=== PATIENT | male | born 1950 | race Caucasian/White ===

== ENCOUNTER 2017-03-14 16:08 | Emergency (ER) | payer MEDICARE, BC ==
--- NOTE | 2017-03-14 16:15 | EDM.PDOC ---
ED HPI GENERAL MEDICAL PROBLEM - General Chief Complaint: Cardiovascular Problem Stated Complaint: IN BY AMBULANCE Time Seen by Provider: 03/14/17 16:08 Source of Information: Reports: Patient, EMS, RN, RN notes reviewed History Limitations: Reports: No Limitations - History of Present Illness INITIAL COMMENTS - FREE TEXT/NARRATIVE: Patient arrives from home by ambulance with report patient was mowing and raking in yard on a riding mower when felt his heart "jump around" then his ICD went off three different times. Patient admits to feeling lightheaded when his heart jumped and also anxious and short of breath. Denies nausea or chest pain. Patient called 911 and states the ICD went off 2 more times, [employer]. Currently patient denies chest pain, nausea, or irregular fast heart rate. He admits to feeling anxious and slightly short of breath. Patient states this was the first time his ICD has ever went off. Onset: today Location: Reports: chest Severity: severe Improves with: Reports: None Worsens with: Reports: None Associated Symptoms: Reports: no other symptoms Chest Pain Score (Numeric/FACES): 3 - Related Data Allergies Allergy/AdvReac Type Severity Reaction Status Date / Time No Known Allergies Allergy Verified 03/14/17 16:12 Home Meds: Home Meds Aspirin [Carrie Chewable] 81 mg PO BID 07/18/16 [History] Clopidogrel [Plavix] 75 mg PO DAILY 07/18/16 [History] Fenofibrate Nanocrystallized [Tricor] 145 mg PO DAILY 07/18/16 [History] Latanoprost [Xalatan 0.005% Ophth Soln] 1 drop EYEBOTH BEDTIME 07/18/16 [History ] Mirtazapine 30 mg PO BEDTIME 07/18/16 [History] Multivit&Min/Iron Fum/Folic Ac [Monocaps Tablet] 1 tab PO DAILY 07/18/16 [ History] Niacin 500 mg PO BID 07/18/16 [History] Sertraline [Zoloft] 100 mg PO BEDTIME 07/18/16 [History] Spironolactone [Aldactone] 25 mg PO DAILY 07/18/16 [History] Zolpidem Tartrate [Ambien] 5 mg PO BEDTIME 07/18/16 [History] Acetaminophen with Codeine [Tylenol with Codeine #3 Tablet] 1 tab PO Q6H PRN 09/20 [History] Amiodarone [Cordarone] 200 mg PO DAILY 03/14/17 [History] Carvedilol 25 mg PO BID 03/14/17 [History] Ezetimibe [Zetia] 10 mg PO DAILY 03/14/17 [History] Gluc HCl/Csa/Cali Hy/Hyalur Ac [Glucosamine Chondroitin] 03/14/17 [History] Magnesium Oxide 400 mg PO DAILY 03/14/17 [History] Nitroglycerin [Nitrostat] 0.4 mg PO ASDIRECTED PRN 03/14/17 [History] [place]-3/DHA/Epa/Fish Oil [[place] 3 500 Softgel] 1 each PO DAILY 03/14/17 [History ] Pravastatin [Pravachol] 80 mg PO BEDTIME 03/14/17 [History] Psyllium Husk [Metamucil] 1 each PO DAILY 03/14/17 [History] Past Medical History HEENT History: Reports: Impaired vision Cardiovascular History: Reports: CAD, High cholesterol, Hypertension, Pacemaker , PTCA - Past Surgical History HEENT Surgical History: Reports: Cataract surgery, Tonsillectomy Cardiovascular Surgical History: Reports: Coronary artery bypass (x2,), Coronary artery stent (multiple.), Pacer ( in 2016.) GI Surgical History: Reports: Cholecystectomy Musculoskeletal Surgical History: Reports: Knee replacement, Other (see below) Other Musculoskeletal Surgeries/Procedures:: back surgery Social & Family History - Family History Family Medical History: Noncontributory - Tobacco Use Smoking Status *Q: Never Smoker Second Hand Smoke Exposure: No - Caffeine Use Caffeine Use: Reports: None - Recreational Drug Use Recreational Drug Use: No ED ROS GENERAL - Review of Systems Review Of Systems: ROS reveals no pertinent complaints other than HPI. ED EXAM, GENERAL - Physical Exam Exam: See Below Exam Limited By: No Limitations General Appearance: Anxious, Obese Eye Exam: Bilateral Eye: Normal Inspection Ears: Normal External Exam, Normal Canal, Hearing Grossly Normal, Normal TMs Nose: Normal Inspection, Normal Mucosa, No Blood Throat/Mouth: Normal Inspection, Normal Lips, Normal Teeth, Normal Gums, Normal Oropharynx, Normal Voice, No Airway Compromise Head: Atraumatic, Normocephalic Neck: Normal Inspection, Supple, Non-Tender, Full Range of Motion Respiratory/Chest: No Respiratory Distress Cardiovascular: Regular Rate, Rhythm, Other (extra beat with PVC on tele monitor. ) GI/Abdominal: Other (obesem benign abdomen.) Back Exam: Normal Inspection, Full Range of Motion, NT Extremities: Normal Inspection, Normal Range of Motion, Non-Tender, Normal Capillary Refill, No Pedal Edema Neurological: Alert, Oriented, CN II-XII Intact, Normal Cognition, Normal Gait, Normal Reflexes, No Motor/Sensory Deficits Psychiatric: Anxious Skin Exam: Warm EKG INTERPRETATION EKG Date: 03/14/17 Time: 16:01 Rhythm: other (sinus rhythm) Rate (beats/min): 76 [place]: normal P-wave: present QRS: wide (nonspecific IVCD.) ST-T: normal QT: normal Comparison: NA - no prior EKG Course - Vital Signs Last Recorded V/S: Last Vital Signs Temp 35.6 C 03/14/17 16:08 Pulse 76 03/14/17 16:08 Resp 16 03/14/17 16:08 BP 162/87 H 03/14/17 16:08 Pulse Ox 99 03/14/17 16:08 - Orders/Labs/Meds Orders: Active Orders 24 hr Category Date Time Status EKG 12 Lead [EKG Documentation Completion] [RC] STAT Care 03/14/17 16:18 Active Peripheral IV Care [RC] . DIRECTED Care 03/14/17 16:18 Active DRUG SCREEN URINE BIORAD [URCHEM] Stat Lab 03/14/17 17:37 Received UA W/MICROSCOPIC [URIN] Stat Lab 03/14/17 17:37 Received Sodium Chloride 0.9% [Saline Flush] Med 03/14/17 16:18 Active 10 ml FLUSH ASDIRECTED PRN Peripheral IV Insertion Adult [OM.PC] Stat Oth 03/14/17 16:18 Ordered Medication Orders Sodium Chloride (Saline Flush) 10 ml FLUSH ASDIRECTED PRN PRN Reason: Keep Vein Open Last Admin: 03/14/17 17:33 Dose: 10 ml Labs: Laboratory Tests 03/14/17 03/14/17 03/14/17 Range/Units 16:35 16:35 16:35 WBC 5.4 (5.0-10.0) 10^3/uL RBC 4.04 L (4.6-6.2) 10^6/uL Hgb 12.6 L (14.0-18.0) g/dL Hct 37.4 L (40.0-54.0) % MCV 92.6 (80-100) fL MCH 31.2 (27.0-34.0) pg MCHC 33.7 (33.0-35.0) g/dL Plt Count 144 L (150-450) 10^3/uL Neut % (Auto) 56.2 (42.2-75.2) % Lymph % (Auto) 25.1 (20.5-50.1) % [place] % (Auto) 10.3 H (2-8) % Eos % (Auto) 7.7 H (1.0-3.0) % Baso % (Auto) 0.7 (0.0-1.0) % PT 10.8 (9.0-12.0) SEC INR 1.1 (0.9-1.2) APTT 26.4 (22.0-34.0) SEC Sodium 134 L (135-145) mmol/L Potassium 4.5 (3.6-5.0) mmol/L Chloride 104 (101-111) mmol/L Carbon Dioxide 23.0 (21.0-31.0) mmol/L Anion Gap 11.5 BUN 22 H (7-18) mg/dL Creatinine 0.9 (0.6-1.3) mg/dL Est Cr Clr Drug Dosing 86.22 mL/min Estimated GFR (MDRD) > 60 BUN/Creatinine Ratio 24.44 Glucose 95 (74-105) mg/dL Calcium 9.2 (8.4-10.2) mg/dl Magnesium 1.7 L (1.8-2.5) mg/dL Total Bilirubin 0.7 (0.2-1.0) mg/dL AST 72 H (10-42) IU/L ALT 39 (10-60) IU/L Alkaline Phosphatase 44 (42-121) IU/L Troponin I 0.04 H* (0.00-0.02) ng/ml B-Natriuretic Peptide 38 (0-100) pg/ml Total Protein 6.9 (6.7-8.2) g/dl Albumin 4.0 (3.2-5.5) g/dl Globulin 2.9 Albumin/Globulin Ratio 1.38 TSH, Ultra Sensitive (0.35-7.0) uIu/mL 03/14/17 Range/Units 16:35 WBC (5.0-10.0) 10^3/uL RBC (4.6-6.2) 10^6/uL Hgb (14.0-18.0) g/dL Hct (40.0-54.0) % MCV (80-100) fL MCH (27.0-34.0) pg MCHC (33.0-35.0) g/dL Plt Count (150-450) 10^3/uL Neut % (Auto) (42.2-75.2) % Lymph % (Auto) (20.5-50.1) % [place] % (Auto) (2-8) % Eos % (Auto) (1.0-3.0) % Baso % (Auto) (0.0-1.0) % PT (9.0-12.0) SEC INR (0.9-1.2) APTT (22.0-34.0) SEC Sodium (135-145) mmol/L Potassium (3.6-5.0) mmol/L Chloride (101-111) mmol/L Carbon Dioxide (21.0-31.0) mmol/L Anion Gap BUN (7-18) mg/dL Creatinine (0.6-1.3) mg/dL Est Cr Clr Drug Dosing mL/min Estimated GFR (MDRD) BUN/Creatinine Ratio Glucose (74-105) mg/dL Calcium (8.4-10.2) mg/dl Magnesium (1.8-2.5) mg/dL Total Bilirubin (0.2-1.0) mg/dL AST (10-42) IU/L ALT (10-60) IU/L Alkaline Phosphatase (42-121) IU/L Troponin I (0.00-0.02) ng/ml B-Natriuretic Peptide (0-100) pg/ml Total Protein (6.7-8.2) g/dl Albumin (3.2-5.5) g/dl Globulin Albumin/Globulin Ratio TSH, Ultra Sensitive 1.94 (0.35-7.0) uIu/mL Meds: Medications Generic Name Dose Route Start Last Admin Trade Name Freq PRN Reason Stop Dose Admin Sodium Chloride 10 ml 03/14/17 16:18 03/14/17 17:33 Saline Flush FLUSH 10 ml ASDIRECTED PRN Administration Keep Vein Open Discontinued Medications Generic Name Dose Route Start Last Admin Trade Name Jose Juanq PRN Reason Stop Dose Admin Lorazepam 1 mg 03/14/17 16:19 03/14/17 16:28 Ativan IVPUSH 03/14/17 16:20 1 mg ONETIME ONE Administration Lorazepam 2 mg 03/14/17 17:28 03/14/17 17:32 Ativan IVPUSH 03/14/17 17:29 2 mg ONETIME ONE Administration - Radiology Interpretation Free Text/Narrative:: Chest x-ray: No new lung mass, hilar lymphadenopathy or focal lobar pneumonia. No atelectasis/collapse. No pneumothorax per rad report. - Re-Assessments/Exams Free Text/Narrative Re-Assessment/Exam: 03/14/17 17:[address] Leigh (dock clerk) who advises Amiodarone 150mg IV bolus, followed by Amiodarone 1mg/minute IV gtt x6 hours, with pt to be transferred to [facility] ER with Dr. Steinberg accepting. I explained the exam findings, results of all diagnostic tests, working diagnosis, and any potential or additionally considered diagnoses, treatment/ disposition plan, self/home care instructions, rational for the diagnosis/ treatment plan/disposition plan, anticipated course of illness, and follow up instructions to the pt and/or pts family or guardian. The pt and/or pts family or guardian acknowledges understanding of the above explanation(s), and of the signs and symptoms which should prompt the return of the pt to the ER should those or any other concerning symptoms develop. Departure - Departure Time of Disposition: 17:55 Disposition: DC/Tfer to Acute Hospital 02 Reason for Transfer *Q: Primary PCI Indicated Condition: serious Clinical Impression: Implantable cardioverter-defibrillator (ICD) discharge, Ventricular tachycardia (paroxysmal) Coronary artery disease Qualifiers: Coronary Disease-Associated Artery/Lesion type: unspecified vessel or lesion type [place] vs. transplanted heart: [place] heart Associated angina: without angina Qualified Code(s): I25.10 - Atherosclerotic heart disease of [place] coronary artery without angina pectoris Forms: ED Department Discharge, Interfacility Transfer EMTALA - My Orders Last 24 Hours: My Active Orders 03/14/17 16:18 EKG 12 Lead [EKG Documentation Completion] [RC] STAT Peripheral IV Care [RC] . DIRECTED Sodium Chloride 0.9% [Saline Flush] 10 ml FLUSH ASDIRECTED PRN Peripheral IV Insertion Adult [OM.PC] Stat 03/14/17 17:37 DRUG SCREEN URINE BIORAD [URCHEM] Stat UA W/MICROSCOPIC [URIN] Stat - Assessment/Plan Last 24 Hours: My Active Orders 03/14/17 16:18 EKG 12 Lead [EKG Documentation Completion] [RC] STAT Peripheral IV Care [RC] . DIRECTED Sodium Chloride 0.9% [Saline Flush] 10 ml FLUSH ASDIRECTED PRN Peripheral IV Insertion Adult [OM.PC] Stat 03/14/17 17:37 DRUG SCREEN URINE BIORAD [URCHEM] Stat UA W/MICROSCOPIC [URIN] Stat
[2017-03-14] MEDS ORDERED: Sodium Chloride 0.9% 10 ML Syringe FLUSH PRN (16:18)
[2017-03-14] MEDS ORDERED: LORazepam 2 MG/ML Syringe IVPUSH ONE ×2 (16:19→17:28)
[2017-03-14 17:00] LABS: CHLORIDE,CL 104 mmol/L (101-111); SODIUM,NA 134 mmol/L (135-145)
--- NOTE | 2017-03-14 17:02 | CR ---
Clinical history: 66-year-old male chest pain. Interpretation: No acute new cardiopulmonary abnormalities identified this AP portable chest film wh en compared 18 July 2016 exam. Sternotomy wires, external denture processor leads and cardiac pacemaker unchanged. Ectasia dorsal aorta. Normal cardiac silhouette without cephalization of vascular flow, signs of alveolar edema or depende nt pleural effusion. No new lung mass, hilar lymphadenopathy or focal lobar pneumonia. No atelectasis/collapse. No pneumothorax.
[2017-03-14] MEDS ORDERED: Amiodarone 150 MG/3 ML SDV IVPUSH ONE (18:03)
[2017-03-14] MEDS ORDERED: Amiodarone In Dextrose,Iso-Osm 200 ML IV SCH (18:15)
[2017-03-14 18:17] VITALS: BP 140/70
--- NOTE | 2017-03-18 11:59 | EKG ---
03/14/2017 - CARLOS MEYER I reviewed the EKG and agree with the machine's reading. [facility] /[id number]
== END 2017-03-14 18:40 ==
LOC: DL.ED 16:08
DX: T82.199A Other mechanical complication of unspecified cardiac device, initial encounter (principal); I25.810 Atherosclerosis of coronary artery bypass graft(s) without angina pectoris; I47.2 Ventricular tachycardia; E78.00 Pure hypercholesterolemia, unspecified; I10 Essential (primary) hypertension; Z98.49 Cataract extraction status, unspecified eye; Z98.890 Other specified postprocedural states; Z79.82 Long term (current) use of aspirin; Z79.899 Other long term (current) drug therapy
CPT/HCPCS: 36415; 71010; 80053; 80305; 81001; 83735; 83880; 84443; 84484; 85025; 85610; 85730; 93005; 93010; 96374; 96375; 96376; 99285; J0282; J2060; J7050; 99284

== ENCOUNTER 2018-03-15 13:53 | Emergency (ER) | payer MEDICARE, BC ==
[2018-03-15] MEDS ORDERED: Sodium Chloride 0.9% 10 ML Syringe FLUSH PRN (13:54)
[2018-03-15] MEDS ORDERED: LORazepam 2 MG/ML Syringe IVPUSH ONE ×2 (14:02→15:16)
[2018-03-15] MEDS ORDERED: Amiodarone 150 MG/3 ML SDV IVPUSH ONE (14:12)
[2018-03-15 14:20] VITALS: BP 146/82
[2018-03-15 14:38] LABS: CHLORIDE,CL 103 mmol/L (101-111); SODIUM,NA 137 mmol/L (135-145)
--- NOTE | 2018-03-15 15:01 | CR ---
Clinical history: 67-year-old male chest pain. Interpretation: No acute new cardiopulmonary abnormality identified in the interval since AP portable film 14 Mar 2017. Sternotomy wires, external potline monitor leads, and pacemaker (single lead intact). Normal cardiac silhouette. No pulmonary vascular congestion or effusions. No new lung mass or hilar lymphadenopathy. No focal lobar pneumonia, atelectasis or collapse. No pneumothorax.
--- NOTE | 2018-03-15 15:45 | EDM.PDOC ---
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 Shortly after onset of symptoms, he felt a couple of irregular heart beats and then his defibrillator fired.Patient pulled to the side of the road and became diaphoretic and lightheaded. He became very anxious and his defibrillator fire 2 more times prior to arrival of the ambulance. Patient denies any shortness of breath or nausea. Denies any syncope. Patient states that he felt well this morning up until the onset of symptoms. Onset: Today Duration: Constant Location: Reports: Chest Quality: Reports: Ache Severity: Severe Improves with: Reports: None Worsens with: Reports: None Associated Symptoms: Reports: No Other Symptoms - Related Data Allergies Allergy/AdvReac Type Severity Reaction Status Date / Time No Known Allergies Allergy Verified 03/14/17 16:12 Home Meds: Home Meds Aspirin [Carrie Chewable] 81 mg PO BID 07/18/16 [History] Clopidogrel [Plavix] 75 mg PO DAILY 07/18/16 [History] Fenofibrate Nanocrystallized [Tricor] 145 mg PO DAILY 07/18/16 [History] Latanoprost [Xalatan 0.005% Ophth Soln] 1 drop EYEBOTH BEDTIME 07/18/16 [History ] Mirtazapine 30 mg PO BEDTIME 07/18/16 [History] Multivit&Min/Iron Fum/Folic Ac [Monocaps Tablet] 1 tab PO DAILY 07/18/16 [ History] Niacin 500 mg PO BID 07/18/16 [History] Sertraline [Zoloft] 100 mg PO BEDTIME 07/18/16 [History] Spironolactone [Aldactone] 25 mg PO DAILY 07/18/16 [History] Zolpidem Tartrate [Ambien] 5 mg PO BEDTIME 07/18/16 [History] Acetaminophen with Codeine [Tylenol with Codeine #3 Tablet] 1 tab PO Q6H PRN 09/20 [History] Amiodarone [Cordarone] 200 mg PO DAILY 03/14/17 [History] Ezetimibe [Zetia] 10 mg PO DAILY 03/14/17 [History] Magnesium Oxide 400 mg PO DAILY 03/14/17 [History] Nitroglycerin [Nitrostat] 0.4 mg PO ASDIRECTED PRN 03/14/17 [History] [place]-3/DHA/Epa/Fish Oil [[place] 3 500 Softgel] 1 each PO DAILY 03/14/17 [History ] Pravastatin [Pravachol] 80 mg PO BEDTIME 03/14/17 [History] Psyllium Husk [Metamucil] 1 each PO DAILY 03/14/17 [History] Isosorbide Mononitrate [Isosorbide Mononitrate ER] 1 tab PO DAILY 03/15/18 [ History] Metoprolol Succinate 1 tab PO BID 03/15/18 [History] Past Medical History HEENT History: Reports: Impaired Vision Cardiovascular History: Reports: CAD, High Cholesterol, Hypertension, Pacemaker , PTCA - Past Surgical History HEENT Surgical History: Reports: Cataract Surgery, Tonsillectomy Cardiovascular Surgical History: Reports: Coronary Artery Bypass, Coronary Artery Stent, Pacer Musculoskeletal Surgical History: Reports: Knee Replacement, Other (See Below) Social & Family History - Family History Family Medical History: Noncontributory - Caffeine Use Caffeine Use: Reports: None Other Caffeine Use: 2-3 cups coffee/day ED ROS GENERAL - Review of Systems Review Of Systems: ROS reveals no pertinent complaints other than HPI. ED EXAM, GENERAL - Physical Exam Exam: See Below Exam Limited By: No Limitations General Appearance: Alert, No Apparent Distress, Anxious (very) Eye Exam: Bilateral Eye: Normal Inspection (chronic post surgical changes left eye) Nose: Normal Inspection, Normal Mucosa, No Blood Throat/Mouth: Normal Inspection, Normal Lips, Normal Teeth, Normal Gums, Normal Oropharynx, Normal Voice, No Airway Compromise Head: Atraumatic, Normocephalic Neck: Normal Inspection, Supple, Non-Tender, Full Range of Motion Respiratory/Chest: No Respiratory Distress, Lungs Clear, Normal Breath Sounds, No Accessory Muscle Use, Chest Non-Tender Cardiovascular: Normal Peripheral Pulses, Regular Rate, Rhythm, No Edema, No Gallop, No JVD, No Murmur, No Rub GI/Abdominal: Normal Bowel Sounds, Soft, Non-Tender, No Distention, No Abnormal Bruit (Male) Exam: Deferred Rectal (Males) Exam: Deferred Back Exam: Normal Inspection, Full Range of Motion, NT Extremities: Normal Inspection, Normal Range of Motion, Non-Tender, Normal Capillary Refill, No Pedal Edema Neurological: Alert, Oriented, CN II-XII Intact, Normal Cognition, Normal Gait, No Motor/Sensory Deficits Psychiatric: Anxious Skin Exam: Warm, Dry, Intact, Normal Color, No Rash EKG INTERPRETATION EKG Date: 03/15/18 Time: 13:55 Rhythm: Other (sinus rhythm) Rate (Beats/Min): 93 QRS: LBBB Comparison: No Change (from 03/14/17: which showed sinus rhythm with nonspecific IVCD.) Course - Vital Signs Last Recorded V/S: Last Vital Signs Temp 36.9 C 03/15/18 13:59 Pulse 95 03/15/18 13:59 Resp 21 H 03/15/18 13:59 BP 146/82 H 03/15/18 14:20 Pulse Ox 98 03/15/18 13:59 - Orders/Labs/Meds Orders: Active Orders 24 hr Category Date Time Status EKG 12 Lead [EKG Documentation Completion] [RC] STAT Care 03/15/18 13:54 Active Peripheral IV Care [RC] . DIRECTED Care 03/15/18 13:55 Active DRUG SCREEN URINE BIORAD [URCHEM] Stat Lab 03/15/18 13:54 Ordered UA W/MICROSCOPIC [URIN] Stat Lab 03/15/18 13:54 Ordered Amiodarone In Dextrose,Iso-Osm [Nexterone in Dextrose Med 03/15/18 14:30 Active 360 MG/200 ML] 360 mg in 200 ml IV ASDIRECTED Sodium Chloride 0.9% [Saline Flush] Med 03/15/18 13:54 Active 10 ml FLUSH ASDIRECTED PRN Peripheral IV Insertion Adult [OM.PC] Stat Oth 03/15/18 13:54 Ordered Medication Orders Amiodarone HCl/Dextrose (Nexterone In Dextrose 360 Mg/200 Ml) 360 mg in 200 mls @ 33.333 mls/hr IV ASDIRECTED [facility]; Protocol Last Admin: 03/15/18 14:34 Dose: 33.333 mls/hr Sodium Chloride (Saline Flush) 10 ml FLUSH ASDIRECTED PRN PRN Reason: Keep Vein Open Last Admin: 03/15/18 14:54 Dose: 10 ml Labs: Laboratory Tests 03/15/18 03/15/18 03/15/18 Range/Units 14:12 14:12 14:12 WBC 6.5 (5.0-10.0) 10^3/uL RBC 4.05 L (4.6-6.2) 10^6/uL Hgb 13.0 L (14.0-18.0) g/dL Hct 39.6 L (40.0-54.0) % MCV 97.8 D (80-100) fL MCH 32.1 (27.0-34.0) pg MCHC 32.8 L (33.0-35.0) g/dL Plt Count 153 (150-450) 10^3/uL Neut % (Auto) 58.1 (42.2-75.2) % Lymph % (Auto) 28.1 (20.5-50.1) % [place] % (Auto) 9.2 H (2-8) % Eos % (Auto) 4.1 H (1.0-3.0) % Baso % (Auto) 0.5 (0.0-1.0) % PT 10.9 (9.0-12.0) SEC INR 1.1 (0.9-1.2) APTT 25.0 (22.0-34.0) SEC Sodium 137 (135-145) mmol/L Potassium 4.2 (3.6-5.0) mmol/L Chloride 103 (101-111) mmol/L Carbon Dioxide 26.0 (21.0-31.0) mmol/L Anion Gap 12.2 BUN 24 H (7-18) mg/dL Creatinine 1.0 (0.6-1.3) mg/dL Est Cr Clr Drug Dosing 76.52 mL/min Estimated GFR (MDRD) > 60 BUN/Creatinine Ratio 24.00 Glucose 126 H (74-105) mg/dL Calcium 9.9 (8.4-10.2) mg/dl Magnesium 1.6 L (1.8-2.5) mg/dL Total Bilirubin 0.7 (0.2-1.0) mg/dL AST 100 H (10-42) IU/L ALT 46 (10-60) IU/L Alkaline Phosphatase 41 L (42-121) IU/L Troponin I 0.03 H* (0.00-0.02) ng/ml B-Natriuretic Peptide 24 (0-100) pg/ml Total Protein 7.8 (6.7-8.2) g/dl Albumin 4.3 (3.2-5.5) g/dl Globulin 3.5 Albumin/Globulin Ratio 1.23 Lipase 30 (22-51) U/L TSH, Ultra Sensitive (0.45-5.33) uIu/mL Ethyl Alcohol < 5 mg/dL 03/15/18 Range/Units 14:12 WBC (5.0-10.0) 10^3/uL RBC (4.6-6.2) 10^6/uL Hgb (14.0-18.0) g/dL Hct (40.0-54.0) % MCV (80-100) fL MCH (27.0-34.0) pg MCHC (33.0-35.0) g/dL Plt Count (150-450) 10^3/uL Neut % (Auto) (42.2-75.2) % Lymph % (Auto) (20.5-50.1) % [place] % (Auto) (2-8) % Eos % (Auto) (1.0-3.0) % Baso % (Auto) (0.0-1.0) % PT (9.0-12.0) SEC INR (0.9-1.2) APTT (22.0-34.0) SEC Sodium (135-145) mmol/L Potassium (3.6-5.0) mmol/L Chloride (101-111) mmol/L Carbon Dioxide (21.0-31.0) mmol/L Anion Gap BUN (7-18) mg/dL Creatinine (0.6-1.3) mg/dL Est Cr Clr Drug Dosing mL/min Estimated GFR (MDRD) BUN/Creatinine Ratio Glucose (74-105) mg/dL Calcium (8.4-10.2) mg/dl Magnesium (1.8-2.5) mg/dL Total Bilirubin (0.2-1.0) mg/dL AST (10-42) IU/L ALT (10-60) IU/L Alkaline Phosphatase (42-121) IU/L Troponin I (0.00-0.02) ng/ml B-Natriuretic Peptide (0-100) pg/ml Total Protein (6.7-8.2) g/dl Albumin (3.2-5.5) g/dl Globulin Albumin/Globulin Ratio Lipase (22-51) U/L TSH, Ultra Sensitive 1.24 (0.45-5.33) uIu/mL Ethyl Alcohol mg/dL Meds: Medications Generic Name Dose Route Start Last Admin Trade Name Freq PRN Reason Stop Dose Admin Amiodarone HCl/Dextrose 360 mg in 200 mls @ 33.333 mls/hr 03/15/18 14:30 10/21 14:34 Nexterone In Dextrose 360 Mg/200 Ml IV 33.333 mls/hr ASDIRECTED MADI Administration Protocol Sodium Chloride 10 ml 03/15/18 13:54 03/15/18 14:54 Saline Flush FLUSH 10 ml ASDIRECTED PRN Administration Keep Vein Open Discontinued Medications Generic Name Dose Route Start Last Admin Trade Name Freq PRN Reason Stop Dose Admin Amiodarone HCl 150 mg 03/15/18 14:12 03/15/18 14:20 Cordarone IVPUSH 03/15/18 14:13 150 mg ONETIME ONE Administration Lorazepam 1 mg 03/15/18 14:02 03/15/18 14:15 Ativan IVPUSH 03/15/18 14:03 1 mg ONETIME ONE Administration Lorazepam 2 mg 03/15/18 15:16 Ativan IVPUSH 03/15/18 15:17 ONETIME ONE - Radiology Interpretation Free Text/Narrative:: Chest x-ray: No acute new cardiopulmonary abnormality identified. See rad report. Departure - Departure Time of Disposition: 15:31 Disposition: DC/Tfer to Acute Hospital 02 Reason for Transfer *Q: Primary PCI Indicated Condition: Serious Clinical Impression: Implantable cardioverter-defibrillator discharge Forms: ED Department Discharge, Interfacility Transfer EMTALA - My Orders Last 24 Hours: My Active Orders 03/15/18 13:54 EKG 12 Lead [EKG Documentation Completion] [RC] STAT DRUG SCREEN URINE BIORAD [URCHEM] Stat UA W/MICROSCOPIC [URIN] Stat Sodium Chloride 0.9% [Saline Flush] 10 ml FLUSH ASDIRECTED PRN Peripheral IV Insertion Adult [OM.PC] Stat 03/15/18 13:55 Peripheral IV Care [RC] . DIRECTED 03/15/18 14:30 Amiodarone In Dextrose,Iso-Osm [Nexterone in Dextrose 360 MG/200 ML] 360 mg in 200 ml IV ASDIRECTED - Assessment/Plan Last 24 Hours: My Active Orders 03/15/18 13:54 EKG 12 Lead [EKG Documentation Completion] [RC] STAT DRUG SCREEN URINE BIORAD [URCHEM] Stat UA W/MICROSCOPIC [URIN] Stat Sodium Chloride 0.9% [Saline Flush] 10 ml FLUSH ASDIRECTED PRN Peripheral IV Insertion Adult [OM.PC] Stat 03/15/18 13:55 Peripheral IV Care [RC] . DIRECTED 03/15/18 14:30 Amiodarone In Dextrose,Iso-Osm [Nexterone in Dextrose 360 MG/200 ML] 360 mg in 200 ml IV ASDIRECTED I have read and agree with the documentation that has been completed regarding this visit. By signing this record, I attest that the documentation was completed in my physical presence and is an accurate record of the encounter.
== END 2018-03-15 16:23 ==
LOC: DL.ED 13:53
DX: T82.198A Other mechanical complication of other cardiac electronic device, initial encounter (principal); I10 Essential (primary) hypertension; E78.00 Pure hypercholesterolemia, unspecified; Z79.82 Long term (current) use of aspirin; Z79.899 Other long term (current) drug therapy
CPT/HCPCS: 36415; 71045; 80053; 83690; 83735; 83880; 84443; 84484; 85025; 85610; 85730; 93005; 96365; 96366; 96375; 96376; 99285; G0480; J0282; J2060; J7050; 93010

== ENCOUNTER 2019-12-22 06:28 | Day surgery (SDC) | payer MEDICARE, BC ==
[~2019-12-22 06:28] MED LIST: Midazolam 1 MG/ML 2 ML SDV ONE; Sodium Chloride 0.9% 10 ML Syringe FLUSH PRN; fentaNYL 100 MCG/2 ML SDV ONE
[2019-12-22] MEDS ORDERED: fentaNYL 100 MCG/2 ML SDV IV ONE ×3 (06:29→07:43)
[2019-12-22] MEDS ORDERED: Midazolam 1 MG/ML 2 ML SDV IV ONE ×3 (06:29→07:45)
[2019-12-22] MEDS ORDERED: Dextrose 5%-0.45% NaCl 1,000 ML IV SCH (08:00)
--- NOTE | 2019-12-22 10:07 | OR ---
DATE: 12/22/2019 PROCEDURES: Esophagogastroduodenoscopy, esophageal dilatation, and multiple pinch biopsies. INSTRUMENT USED: GIF-HQ190 Olympus video panendoscope. PREMEDICATIONS: No oral or topical anesthesia used. Fentanyl 100 mcg intravenous, Versed 2 mg intravenous, nasal O2 cannula. The procedure was done under pulse oximetry, BP recording, and employee communications specialist. INDICATION: The patient with high dysphagia, unexplained and not responsive to medical measures. Barium esophagogram suggestive of distal esophageal stricture. Esophagogastroduodenoscopy is performed for detection of any active erosive lesions, Jung esophagus and/or malignancy also under consideration, H pylori status to be determined, esophageal dilatations if indicated, endoscopic hemostasis therapy if needed. PROCEDURE IN DETAIL: The scope was passed with ease. Adequate visualization of the esophagus was made proximal to distal areas. No upper esophageal lesions identified. There was some amount of stricture of the distal esophagus, but the tip of the scope was passed with ease to visualize the gastric mucosa. No uphill or downhill esophageal varices. No Rocio-Foy tear. No evidence of erosive esophagitis by Los-Nicolette criteria. No esophageal polyp or tumor mass identified. Z-line was seen at around 40 cm distal to the oral verge, configuration consistent with grade 1 by ZAP classification. No proximal gastric varices noted. Gastric fundus examination by retroflexion showed no polypoid lesions. No gastric ulcer, malignant mass, or vascular ectasia identified. Patchy erythema of the antral mucosa was noted. Duodenal bulb showed no ulcer. Visualized second part of the duodenum was unremarkable. Multiple pinch biopsies were taken from the gastric antrum and proximal body and sent for PyloriTek test for H pylori, and if negative in an hour, the tissue is to be sent for histopathology. No bleeding was noted from any of the visualized areas at the completion of examination. Photographs were taken of the duodenal bulb, gastric antrum, fundus, and distal esophagus. IMPRESSION: Peptic esophageal stricture. The patient tolerated the procedure well. [facility] /[id number]
--- NOTE | 2019-12-22 10:14 | OR ---
DATE: 12/22/2019 PROCEDURE DONE: Esophageal dilatation. INSTRUMENT USED: Otto bougie dilator, Hebrew size 48. PREMEDICATIONS: Done after esophagogastroduodenoscopy. PROCEDURE IN DETAIL: Esophageal dilatation was done with ease using Hebrew size 48 dilator. No blood was noted at dilated tip after completion. IMPRESSION: Peptic esophageal stricture. The patient tolerated the procedure well. [facility] /[id number]
[2019-12-22 10:41] VITALS: BP 151/73; PULSE 51
== END 2019-12-22 10:02 | disposition home or self-care (01) ==
LOC: DL.ENDO 06:28
PROVIDERS: ATTEND Internal Medicine Gastroenterology
DX: R13.10 Dysphagia, unspecified (principal)
CPT/HCPCS: 43239; 43450; 87077; J2250; J3010; J7042; 43220

== ENCOUNTER 2023-12-16 15:14 | Emergency (ER) | payer MEDICARE, BC ==
[2023-12-16 15:50] LABS: BASOPHILS PERCENT AUTO 0.4 % (0.0-1.0); EOSINOPHILS PERCENT AUTO 2.4 % (1.0-3.0); HEMATOCRIT 41.1 % (40.0-54.0); HEMOGLOBIN 13.2 g/dL (14.0-18.0); LYMPHOCYTES PERCENT AUTO 17.7 % (20.5-50.1); MEAN CORPUSCULAR HEMOGLOBIN 29.2 pg (27.0-34.0); MEAN CORPUSCULAR HGB CONC 32.1 g/dL (33.0-35.0); MEAN CORPUSCULAR VOLUME 90.9 fL (80-100); MONOCYTES PERCENT AUTO 7.6 % (2-8); NEUTROPHILS PERCENT AUTO 71.9 % (42.2-75.2); PLATELET COUNT,PLT 344 10^3/uL (150-450); RED BLOOD CELL COUNT 4.52 10^6/uL (4.6-6.2); WHITE BLOOD CELL COUNT,WBC 9.6 10^3/uL (5.0-10.0)
[2023-12-16 16:08] LABS: ALBUMIN 3.1 g/dL (3.4-5.0); ANION GAP 12.6 mEq/L (7-13); BILIRUBIN TOTAL 0.5 mg/dL (0.2-1.0); BUN/CREATININE RATIO 28.1 (No establ ref range); C-REACTIVE PROTEIN 0.51 ng/dL (<=0.50); CALCIUM 9.4 mg/dL (8.5-10.1); CREATININE 1.14 mg/dL (0.70-1.30); EST CRCL DRUG DOSING (CG) 61.45 mL/min; MAGNESIUM 1.9 mg/dL (1.8-2.4); POTASSIUM,K 4.6 mmol/L (3.5-5.1); PROTEIN TOTAL,TP 7.7 g/dL (6.4-8.2)
[2023-12-16 16:11] LABS: LACTIC ACID 1.6 mmol/L (0.4-2.0)
[2023-12-16] MEDS: Ketorolac 30 MG/ML SDV IVPUSH ONE (16:11)
[2023-12-16] MEDS: Sodium Chloride 0.9% 10 ML Syringe FLUSH PRN (16:12)
[2023-12-16 16:18] LABS: A/G RATIO 0.67
[2023-12-16 16:51] LABS: CORONAVIRUS COVID-19 NAA NEGATIVE (NEGATIVE); INFLUENZA A NAA NEGATIVE (NEGATIVE); INFLUENZA B NAA NEGATIVE (NEGATIVE)
[2023-12-16 17:37] VITALS: BP 140/65; PULSE 69
[2023-12-16] MEDS: Lactulose Soln 10 GM/15 ML 30 ML UD Cup PO ONE (17:43)
[2023-12-16] MEDS: Methylnaltrexone 12 MG/0.6 ML SDV SUBCUT ONE (17:46)
== END 2023-12-16 17:57 | disposition home or self-care (01) ==
LOC: DL.ED 15:14
DX: K59.00 Constipation, unspecified (principal); I10 Essential (primary) hypertension; E78.00 Pure hypercholesterolemia, unspecified; I25.10 Atherosclerotic heart disease of native coronary artery without angina pectoris; J44.9 Chronic obstructive pulmonary disease, unspecified; Z95.5 Presence of coronary angioplasty implant and graft; Z79.82 Long term (current) use of aspirin; Z79.899 Other long term (current) drug therapy
CPT/HCPCS: 0240U; 36415; 74018; 80053; 82150; 82272; 83605; 83690; 83735; 85025; 86140; 87040; 93010; 96372; 96374; 99284; A9270; J1885; J2212; J3490

== ENCOUNTER → 2024-03-16 | Day surgery (SDC) | payer MEDICARE, BC ==
[~2024-03-16] MED LIST changes: -Sodium Chloride 0.9% 10 ML Syringe FLUSH PRN
[2024-03-16] MEDS: Dextrose 5%-0.45% NaCl 1,000 ML IV SCH (06:33)
[2024-03-16] MEDS: fentaNYL 100 MCG/2 ML SDV IV ONE ×2 (07:02→07:03)
[2024-03-16] MEDS: Midazolam 1 MG/ML 2 ML SDV IV ONE ×2 (07:03→07:04)
[2024-03-16 08:44] VITALS: BP 145/59; PULSE 65
== END ==
LOC: DL.ENDO 05:51
PROVIDERS: ATTEND Internal Medicine Gastroenterology
DX: K22.2 Esophageal obstruction (principal); I10 Essential (primary) hypertension; J44.9 Chronic obstructive pulmonary disease, unspecified; I25.10 Atherosclerotic heart disease of native coronary artery without angina pectoris; F32.A Depression, unspecified
CPT/HCPCS: J2250; J3010; J7042

== ENCOUNTER 2025-04-25 21:02 | Emergency (ER) | payer MEDICARE, BC ==
[2025-04-25 21:08] VITALS: BP 110/69; PULSE 106
[2025-04-25 21:41] LABS: HEMOGLOBIN 10.1 g/dL (14.0-18.0); MEAN CORPUSCULAR HEMOGLOBIN 30.5 pg (27.0-34.0); MEAN CORPUSCULAR HGB CONC 33.7 g/dL (33.0-35.0); MEAN CORPUSCULAR VOLUME 90.6 fL (80-100); PLATELET COUNT,PLT 208 10^3/uL (150-450); RED BLOOD CELL COUNT 3.31 10^6/uL (4.6-6.2); WHITE BLOOD CELL COUNT,WBC 8.3 10^3/uL (5.0-10.0)
[2025-04-25 21:44] LABS: O2 DELIVERY DEVICE NASAL CANNULA
[2025-04-25 21:45] LABS: BASE EXCESS VENOUS -0.3 mmol/l ((-2)-(+3)); BICARBONATE,VENOUS 24 mmol/l (19-25); PCO2 VENOUS 42 mmHg (41-51); PH,VENOUS 7.38 (7.31-7.41); PO2 VENOUS 44 mmHg (35-42)
[2025-04-25] MEDS: Lactated Ringers 1,000 ML IV ONE (21:45)
[2025-04-25 21:46] LABS: BASOPHILS PERCENT AUTO 0.7 % (0.0-1.0); LYMPHOCYTES PERCENT AUTO 14.5 % (20.5-50.1); MONOCYTES PERCENT AUTO 12.2 % (2-8); NEUTROPHILS PERCENT AUTO 71.6 % (42.2-75.2)
[2025-04-25 22:05] LABS: A/G RATIO 0.91; ALBUMIN 2.9 g/dL (3.4-5.0); ANION GAP 11.6 mEq/L (7-13); BILIRUBIN TOTAL 0.5 mg/dL (0.2-1.0); BUN/CREATININE RATIO 59.6 (No establ ref range); CALCIUM 9.2 mg/dL (8.5-10.1); CREATININE 0.94 mg/dL (0.70-1.30); EST CRCL DRUG DOSING (CG) 73.38 mL/min; INR 1.1 (0.9-1.2); POTASSIUM,K 3.6 mmol/L (3.5-5.1); PROTEIN TOTAL,TP 6.1 g/dL (6.4-8.2); PTT,PARTIAL THROMBOPLSTIN TIME 25.4 SEC (22.0-34.0)
[2025-04-25 22:27] LABS: EOSINOPHILS PERCENT MAN 1 % (1-3); LYMPHOCYTES PERCENT MAN 12 % (20-50); MONOCYTES PERCENT MAN 10 % (2-8); SEG NEUTROPHILS PERCENT MAN 77 % (42-75)
[2025-04-25] MEDS: Pantoprazole 40 MG Vial IVPUSH ONE (22:45)
== END 2025-04-26 00:44 ==
LOC: DL.ED 21:02
DX: K92.2 Gastrointestinal hemorrhage, unspecified (principal); I10 Essential (primary) hypertension; I25.10 Atherosclerotic heart disease of native coronary artery without angina pectoris; E78.00 Pure hypercholesterolemia, unspecified; K21.9 Gastro-esophageal reflux disease without esophagitis; J44.9 Chronic obstructive pulmonary disease, unspecified; Z95.0 Presence of cardiac pacemaker; Z79.82 Long term (current) use of aspirin; Z79.899 Other long term (current) drug therapy
CPT/HCPCS: 36415; 80053; 82803; 83605; 84484; 85025; 85610; 85730; 93005; 96361; 96374; 99285; J2470; J7120

== ENCOUNTER 2025-05-05 01:32 | Inpatient (IN) | payer MEDICARE, BC ==
[2025-05-05 01:56] LABS: BASOPHILS PERCENT AUTO 0.8 % (0.0-1.0); EOSINOPHILS PERCENT AUTO 1.1 % (1.0-3.0); LYMPHOCYTES PERCENT AUTO 14.4 % (20.5-50.1); MONOCYTES PERCENT AUTO 6.0 % (2-8); NEUTROPHILS PERCENT AUTO 77.7 % (42.2-75.2); PLATELET COUNT,PLT 167 10^3/uL (150-450); RED BLOOD CELL COUNT 3.02 10^6/uL (4.6-6.2); WHITE BLOOD CELL COUNT,WBC 8.8 10^3/uL (5.0-10.0)
[2025-05-05] MEDS: Acetaminophen Soln 160 MG/5 ML UD Cup PO ONE (02:03)
[2025-05-05 02:09] LABS: GLUCOSE,URINE NEGATIVE (NEGATIVE); OCCULT BLOOD,URINE NEGATIVE (NEGATIVE)
[2025-05-05 02:10] LABS: APPEARANCE,URINE CLOUDY (CLEAR)
[2025-05-05 02:11] LABS: ALANINE AMINOTRANSFERASE,ALT 20 U/L (16-63); ASPARTATE AMNIOTRANSFERASE,AST 32 U/L (15-37); BILIRUBIN TOTAL 0.5 mg/dL (0.2-1.0); BLOOD UREA NITROGEN,BUN 30 mg/dL (7-18); CARBON DIOXIDE,CO2 28 mmol/L (21-32); CHLORIDE,CL 107 mmol/L (98-107); CREATININE 0.79 mg/dL (0.70-1.30); GLUCOSE RANDOM 126 mg/dL (70-99); INR 1.0 (0.9-1.2); POTASSIUM,K 4.0 mmol/L (3.5-5.1); PROTEIN TOTAL,TP 5.7 g/dL (6.4-8.2); PTT,PARTIAL THROMBOPLSTIN TIME 23.7 SEC (22.0-34.0); SODIUM,NA 142 mmol/L (136-145)
[2025-05-05 02:12] LABS: A/G RATIO 0.97; ESTIMATED GFR 92 mL/min (>=60); LACTIC ACID 1.4 mmol/L (0.4-2.0)
[2025-05-05] MEDS: Ondansetron 4 MG/2 ML SDV IVPUSH ONE (02:20)
[2025-05-05 02:22] LABS: EPITHELIAL CELLS,URINE FEW /HPF (NOT SEEN)
[2025-05-05] MEDS: Diphtheria,Pertussis(Acell),Tetanus Vaccine 0.5 ML Syringe IM ONE (04:48)
[2025-05-05] MEDS: Heparin Sodium 5,000 Units/ML Vial SUBCUT SCH (05:43)
[2025-05-05 06:59] LABS: IRON,FE 38.0 ug/dL (65-175); PERCENT FE SATURATION 11.2 % (20.0-50.0)
[2025-05-05 08:05] LABS: FOLIC ACID 11.6 ng/mL (8.6-58.9)
[2025-05-05] MEDS: fentaNYL 100 MCG/2 ML SDV IVPUSH PRN ×2 (09:01→21:57)
[2025-05-05] MEDS: Isosorbide Mononitrate 60 MG Tab.ER PO SCH (10:20)
[2025-05-05] MEDS: MEXILETINE PO SCH (20:54)
[2025-05-06 06:56] LABS: BASOPHILS PERCENT AUTO 0.5 % (0.0-1.0); EOSINOPHILS PERCENT AUTO 4.6 % (1.0-3.0); LYMPHOCYTES PERCENT AUTO 19.5 % (20.5-50.1); MONOCYTES PERCENT AUTO 14.1 % (2-8); NEUTROPHILS PERCENT AUTO 61.3 % (42.2-75.2); PLATELET COUNT,PLT 124 10^3/uL (150-450); RED BLOOD CELL COUNT 2.50 10^6/uL (4.6-6.2); WHITE BLOOD CELL COUNT,WBC 3.7 10^3/uL (5.0-10.0)
[2025-05-06 07:02] LABS: BLOOD UREA NITROGEN,BUN 21.0 mg/dL (7-18); CARBON DIOXIDE,CO2 27.0 mmol/L (21-32); CHLORIDE,CL 109.0 mmol/L (98-107); CREATININE 0.68 mg/dL (0.70-1.30); EST CRCL DRUG DOSING (CG) 101.44 mL/min; GLUCOSE RANDOM 129.0 mg/dL (70-99); POTASSIUM,K 4.2 mmol/L (3.5-5.1); SODIUM,NA 142.0 mmol/L (136-145)
[2025-05-06 07:03] LABS: ESTIMATED GFR 96.0 mL/min (>=60)
[2025-05-06] MEDS: fentaNYL 25 MCG/HR Transdermal Patch TRDERM SCH (09:43)
[2025-05-06 13:02] VITALS: BP 100/48; PULSE 77
== END 2025-05-06 13:27 | DRG 562 ==
LOC: DL.ED 01:32 → DL.MS 03:30
PROVIDERS: ADMIT Internal Medicine; ATTEND Internal Medicine
DX: S42.294A Other nondisplaced fracture of upper end of right humerus, initial encounter for closed fracture (principal); E43 Unspecified severe protein-calorie malnutrition; C83.30 Diffuse large B-cell lymphoma, unspecified site; I25.10 Atherosclerotic heart disease of native coronary artery without angina pectoris; J44.9 Chronic obstructive pulmonary disease, unspecified; I10 Essential (primary) hypertension; G47.30 Sleep apnea, unspecified; N39.0 Urinary tract infection, site not specified; H54.7 Unspecified visual loss; E78.00 Pure hypercholesterolemia, unspecified; K21.9 Gastro-esophageal reflux disease without esophagitis; E86.0 Dehydration; D64.89 Other specified anemias; M19.90 Unspecified osteoarthritis, unspecified site; F32.A Depression, unspecified; W19.XXXA Unspecified fall, initial encounter; N40.0 Benign prostatic hyperplasia without lower urinary tract symptoms; M10.9 Gout, unspecified; M54.9 Dorsalgia, unspecified; G89.29 Other chronic pain; F41.9 Anxiety disorder, unspecified; Z98.49 Cataract extraction status, unspecified eye; Z90.49 Acquired absence of other specified parts of digestive tract; Z96.659 Presence of unspecified artificial knee joint; Z98.890 Other specified postprocedural states; Z79.899 Other long term (current) drug therapy; Z95.0 Presence of cardiac pacemaker; Z79.82 Long term (current) use of aspirin; Z68.25 Body mass index [BMI] 25.0-25.9, adult; Z95.5 Presence of coronary angioplasty implant and graft
CPT/HCPCS: 36415; 70450; 70486; 71045; 72125; 73030-RT; 80048; 80053; 81001; 82272; 82607; 82746; 83540; 83550; 83605; 84145; 84484; 85025; 85610; 85730; 87040; 87086; 90471; 93005; 93010; 96374; 96375; 97161-GP; 97165-GO; 99223; 99239; 99285; 99285-25; A4320; A9270-GY; J0696; J1171; J1642; J1644; J2405; J3010; J7030

== ENCOUNTER 2025-07-20 18:18 | Inpatient (IN) | payer MEDICARE, BC ==
[2025-07-20 18:34] LABS: BASOPHILS PERCENT AUTO 1.1 % (0.0-1.0); EOSINOPHILS PERCENT AUTO 12.7 % (1.0-3.0); LYMPHOCYTES PERCENT AUTO 41.5 % (20.5-50.1); MONOCYTES PERCENT AUTO 17.9 % (2-8); NEUTROPHILS PERCENT AUTO 26.8 % (42.2-75.2); PLATELET COUNT,PLT 176 10^3/uL (150-450); RED BLOOD CELL COUNT 4.00 10^6/uL (4.6-6.2); WHITE BLOOD CELL COUNT,WBC 3.7 10^3/uL (5.0-10.0)
[2025-07-20 19:10] LABS: BLOOD UREA NITROGEN,BUN 17 mg/dL (7-18); CARBON DIOXIDE,CO2 29 mmol/L (21-32); CHLORIDE,CL 105 mmol/L (98-107); CREATININE 0.76 mg/dL (0.70-1.30); GLUCOSE RANDOM 83 mg/dL (70-99); POTASSIUM,K 4.1 mmol/L (3.5-5.1); SODIUM,NA 140 mmol/L (136-145)
[2025-07-20 19:13] LABS: ESTIMATED GFR 93 mL/min (>=60)
[2025-07-20 20:36] LABS: LACTIC ACID 1.2 mmol/L (0.4-2.0)
[2025-07-20 21:15] LABS: APPEARANCE,URINE CLEAR (CLEAR); GLUCOSE,URINE NEGATIVE (NEGATIVE); OCCULT BLOOD,URINE NEGATIVE (NEGATIVE)
[2025-07-20 21:28] LABS: EPITHELIAL CELLS,URINE RARE /HPF (NOT SEEN)
[2025-07-20] MEDS ORDERED: Metoprolol Tartrate 5 MG/5 ML SDV IVPUSH PRN (23:29)
[2025-07-20] MEDS ORDERED: hydrALAZINE 20 MG/ML SDV IVPUSH PRN (23:29)
[2025-07-20] MEDS ORDERED: Ondansetron 4 MG/2 ML SDV IVPUSH PRN (23:30)
[2025-07-20] MEDS ORDERED: Magnesium Hydroxide 400 MG/5 ML Susp 30 ML Cup PO PRN (23:30)
[2025-07-21] MEDS: Dexamethasone 4 MG/ML SDV IVPUSH ONE (00:32)
[2025-07-21 06:26] LABS: BASOPHILS PERCENT AUTO 0.5 % (0.0-1.0); EOSINOPHILS PERCENT AUTO 2.5 % (1.0-3.0); LYMPHOCYTES PERCENT AUTO 36.1 % (20.5-50.1); MONOCYTES PERCENT AUTO 3.5 % (2-8); NEUTROPHILS PERCENT AUTO 57.4 % (42.2-75.2); PLATELET COUNT,PLT 177 10^3/uL (150-450); RED BLOOD CELL COUNT 3.98 10^6/uL (4.6-6.2); WHITE BLOOD CELL COUNT,WBC 2.0 10^3/uL (5.0-10.0)
[2025-07-21 07:12] LABS: ALANINE AMINOTRANSFERASE,ALT 15.0 U/L (16-63); ASPARTATE AMNIOTRANSFERASE,AST 23.0 U/L (15-37); BILIRUBIN TOTAL 0.2 mg/dL (0.2-1.0); BLOOD UREA NITROGEN,BUN 13.0 mg/dL (7-18); CARBON DIOXIDE,CO2 26.0 mmol/L (21-32); CHLORIDE,CL 106.0 mmol/L (98-107); CREATININE 0.72 mg/dL (0.70-1.30); EST CRCL DRUG DOSING (CG) 95.8 mL/min; GLUCOSE RANDOM 165.0 mg/dL (70-99); POTASSIUM,K 4.6 mmol/L (3.5-5.1); PROTEIN TOTAL,TP 5.8 g/dL (6.4-8.2); SODIUM,NA 139.0 mmol/L (136-145)
[2025-07-21 07:15] LABS: A/G RATIO 0.93; ESTIMATED GFR 95.0 mL/min (>=60)
[2025-07-21] MEDS: Magnesium Sulfate 2 GM/50 mL 2 GM in Premix Bag 1 BAG IV ONE (09:02)
[2025-07-21] MEDS: Saccharomyces Boulardii (Probiotic) 250 MG Cap PO SCH (09:03)
[2025-07-21] MEDS: Acetaminophen/HYDROcodone 325-5 MG Tab PO PRN (09:12)
[2025-07-21] MEDS: Sodium Chloride 0.9% 10 ML Syringe FLUSH PRN (14:36)
[2025-07-22 07:16] LABS: BASOPHILS PERCENT AUTO 0.7 % (0.0-1.0); EOSINOPHILS PERCENT AUTO 0.7 % (1.0-3.0); LYMPHOCYTES PERCENT AUTO 23.0 % (20.5-50.1); MONOCYTES PERCENT AUTO 17.9 % (2-8); NEUTROPHILS PERCENT AUTO 57.7 % (42.2-75.2); PLATELET COUNT,PLT 179 10^3/uL (150-450); RED BLOOD CELL COUNT 3.92 10^6/uL (4.6-6.2); WHITE BLOOD CELL COUNT,WBC 4.1 10^3/uL (5.0-10.0)
[2025-07-22 07:48] LABS: ALANINE AMINOTRANSFERASE,ALT 14 U/L (16-63); ASPARTATE AMNIOTRANSFERASE,AST 19 U/L (15-37); BILIRUBIN TOTAL 0.3 mg/dL (0.2-1.0); BLOOD UREA NITROGEN,BUN 19 mg/dL (7-18); CARBON DIOXIDE,CO2 28 mmol/L (21-32); CHLORIDE,CL 105 mmol/L (98-107); CREATININE 0.52 mg/dL (0.70-1.30); EST CRCL DRUG DOSING (CG) 132.65 mL/min; GLUCOSE RANDOM 136 mg/dL (70-99); POTASSIUM,K 4.2 mmol/L (3.5-5.1); PROTEIN TOTAL,TP 5.7 g/dL (6.4-8.2); SODIUM,NA 139 mmol/L (136-145)
[2025-07-22 07:50] LABS: A/G RATIO 0.90; ESTIMATED GFR 104 mL/min (>=60)
[2025-07-22] MEDS: fentaNYL 25 MCG/HR Transdermal Patch TRDERM ONE (19:48)
[2025-07-22] MEDS: MEXILETINE 150 MG PO SCH (22:10)
[2025-07-23 06:42] LABS: BASOPHILS PERCENT AUTO 0.8 % (0.0-1.0); EOSINOPHILS PERCENT AUTO 0.6 % (1.0-3.0); LYMPHOCYTES PERCENT AUTO 22.3 % (20.5-50.1); MONOCYTES PERCENT AUTO 16.2 % (2-8); NEUTROPHILS PERCENT AUTO 60.1 % (42.2-75.2); PLATELET COUNT,PLT 202 10^3/uL (150-450); RED BLOOD CELL COUNT 4.06 10^6/uL (4.6-6.2); WHITE BLOOD CELL COUNT,WBC 5.1 10^3/uL (5.0-10.0)
[2025-07-23 07:27] LABS: ALANINE AMINOTRANSFERASE,ALT 13 U/L (16-63); ASPARTATE AMNIOTRANSFERASE,AST 17 U/L (15-37); BILIRUBIN TOTAL 0.3 mg/dL (0.2-1.0); BLOOD UREA NITROGEN,BUN 21 mg/dL (7-18); CARBON DIOXIDE,CO2 30 mmol/L (21-32); CHLORIDE,CL 104 mmol/L (98-107); CREATININE 0.54 mg/dL (0.70-1.30); EST CRCL DRUG DOSING (CG) 127.74 mL/min; GLUCOSE RANDOM 98 mg/dL (70-99); POTASSIUM,K 4.2 mmol/L (3.5-5.1); PROTEIN TOTAL,TP 5.8 g/dL (6.4-8.2); SODIUM,NA 139 mmol/L (136-145)
[2025-07-23 07:35] LABS: A/G RATIO 0.93; ESTIMATED GFR 103 mL/min (>=60)
[2025-07-23] MEDS: Magnesium Sulfate 2 GM/50 mL 2 GM in Premix Bag 1 BAG IV ONE (09:26)
[2025-07-23 11:01] VITALS: BP 99/61; PULSE 77
== END 2025-07-23 15:00 | disposition home or self-care (01) | DRG 193 ==
LOC: DL.ED 18:18 → DL.MS 21:37
PROVIDERS: ADMIT Internal Medicine; ATTEND Internal Medicine
DX: J18.9 Pneumonia, unspecified organism (principal); I10 Essential (primary) hypertension; E43 Unspecified severe protein-calorie malnutrition; J44.0 Chronic obstructive pulmonary disease with (acute) lower respiratory infection; I50.22 Chronic systolic (congestive) heart failure; H54.7 Unspecified visual loss; I25.10 Atherosclerotic heart disease of native coronary artery without angina pectoris; E78.00 Pure hypercholesterolemia, unspecified; G47.30 Sleep apnea, unspecified; K21.9 Gastro-esophageal reflux disease without esophagitis; M19.90 Unspecified osteoarthritis, unspecified site; M54.9 Dorsalgia, unspecified; I11.0 Hypertensive heart disease with heart failure; E86.0 Dehydration; G89.29 Other chronic pain; F41.9 Anxiety disorder, unspecified; Z96.659 Presence of unspecified artificial knee joint; Z98.49 Cataract extraction status, unspecified eye; Z90.49 Acquired absence of other specified parts of digestive tract; Z98.890 Other specified postprocedural states; Z79.899 Other long term (current) drug therapy; Z95.0 Presence of cardiac pacemaker; Z95.5 Presence of coronary angioplasty implant and graft; Z79.82 Long term (current) use of aspirin; Z68.25 Body mass index [BMI] 25.0-25.9, adult
CPT/HCPCS: 36415; 71250; 80048; 80053; 80202; 81001; 83605; 83735; 83880; 84484; 85025; 86140; 93005; 96360; 96361; 97161-GP; 97165-GO; 99285-25; A4320; A9270-GY; J0692; J1100; J1171; J3373; J3374; J3475; J7040; J7050; J7512

== ENCOUNTER 2025-09-14 14:49 | Inpatient (IN) | payer MEDICARE, BC ==
[2025-09-14 15:21] LABS: PLATELET COUNT,PLT 302 10^3/uL (150-450); RED BLOOD CELL COUNT 3.63 10^6/uL (4.6-6.2); WHITE BLOOD CELL COUNT,WBC 10.0 10^3/uL (5.0-10.0)
[2025-09-14 15:33] LABS: BASOPHILS PERCENT AUTO 1.7 % (0.0-1.0); EOSINOPHILS PERCENT AUTO 3.1 % (1.0-3.0); LYMPHOCYTES PERCENT AUTO 9.1 % (20.5-50.1); MONOCYTES PERCENT AUTO 11.1 % (2-8); NEUTROPHILS PERCENT AUTO 75.0 % (42.2-75.2)
[2025-09-14 15:39] LABS: B-TYPE NATRIURETIC PEPTIDE,BNP 172.0 pg/ml (0-100)
[2025-09-14 15:40] LABS: INR 1.2 (0.9-1.2); PTT,PARTIAL THROMBOPLSTIN TIME 33.4 SEC (22.0-34.0)
[2025-09-14 15:45] LABS: ALANINE AMINOTRANSFERASE,ALT 16.0 U/L (16-63); ASPARTATE AMNIOTRANSFERASE,AST 35.0 U/L (15-37); BILIRUBIN TOTAL 0.6 mg/dL (0.2-1.0); BLOOD UREA NITROGEN,BUN 29.0 mg/dL (7-18); CARBON DIOXIDE,CO2 26.0 mmol/L (21-32); CHLORIDE,CL 102.0 mmol/L (98-107); CREATININE 0.81 mg/dL (0.70-1.30); EST CRCL DRUG DOSING (CG) 85.16 mL/min; GLUCOSE RANDOM 139.0 mg/dL (70-99); POTASSIUM,K 3.9 mmol/L (3.5-5.1); PROTEIN TOTAL,TP 6.3 g/dL (6.4-8.2); SODIUM,NA 139.0 mmol/L (136-145)
[2025-09-14 15:46] LABS: A/G RATIO 0.62; ESTIMATED GFR 91.0 mL/min (>=60)
[2025-09-14 15:47] LABS: LACTIC ACID 3.2 mmol/L (0.4-2.0)
[2025-09-14] MEDS: Iopamidol 612 MG/ML 100 ML Bottle IVPUSH ONE (15:50)
[2025-09-14 16:13] LABS: BAND PERCENT MAN 4 %; EOSINOPHILS PERCENT MAN 3 % (1-3); LYMPHOCYTES PERCENT MAN 8 % (20-50); MONOCYTES PERCENT MAN 15 % (2-8); SEG NEUTROPHILS PERCENT MAN 70 % (42-75)
[2025-09-14 16:14] LABS: ELLIPTOCYTES FEW; TEARDROP CELLS FEW
[2025-09-14] MEDS: Magnesium Sulfate 2 GM/50 mL 2 GM in Premix Bag 1 BAG IV ONE (16:26)
[2025-09-14 17:26] LABS: APPEARANCE,URINE CLEAR (CLEAR); GLUCOSE,URINE NEGATIVE (NEGATIVE); OCCULT BLOOD,URINE NEGATIVE (NEGATIVE)
[2025-09-14 17:36] LABS: EPITHELIAL CELLS,URINE FEW /HPF (NOT SEEN)
[2025-09-14 17:53] LABS: IRON,FE 20.0 ug/dL (65-175); PERCENT FE SATURATION 9.4 % (20.0-50.0)
[2025-09-14] MEDS ORDERED: Sodium Chloride 0.9% 10 ML Syringe FLUSH PRN (18:08)
[2025-09-14 18:33] LABS: ALANINE AMINOTRANSFERASE,ALT 15.0 U/L (16-63); ASPARTATE AMNIOTRANSFERASE,AST 31.0 U/L (15-37); BILIRUBIN DIRECT 0.2 mg/dL (0.0-0.2); BILIRUBIN INDIRECT 0.2; BILIRUBIN TOTAL 0.4 mg/dL (0.2-1.0); PROTEIN TOTAL,TP 4.9 g/dL (6.4-8.2)
[2025-09-14 18:34] LABS: A/G RATIO 0.81
[2025-09-14 18:40] LABS: LACTIC ACID 1.7 mmol/L (0.4-2.0)
[2025-09-14 19:23] LABS: FOLIC ACID 14.2 ng/mL (8.6-58.9)
[2025-09-14] MEDS: Lactated Ringers 1,000 ML IV SCH (19:46)
[2025-09-14] MEDS: Ondansetron 4 MG/2 ML SDV IVPUSH PRN (19:48)
[2025-09-14 19:49] LABS: PHOSPHORUS 2.2 mg/dL (2.6-4.7); T4 FREE 0.94 ng/dL (0.76-1.46); TSH ULTRASENSITIVE 0.85 uIU/mL (0.36-3.74)
[2025-09-14 19:57] LABS: ETHANOL BLOOD MEDICAL < 3 mg/dL (0)
[2025-09-14] MEDS: Sodium Chloride 0.9% 10 ML Syringe FLUSH SCH (20:00)
[2025-09-15 06:33] LABS: BASOPHILS PERCENT AUTO 2.3 % (0.0-1.0); EOSINOPHILS PERCENT AUTO 10.2 % (1.0-3.0); LYMPHOCYTES PERCENT AUTO 12.0 % (20.5-50.1); MONOCYTES PERCENT AUTO 14.1 % (2-8); NEUTROPHILS PERCENT AUTO 61.4 % (42.2-75.2); PLATELET COUNT,PLT 214 10^3/uL (150-450); RED BLOOD CELL COUNT 2.89 10^6/uL (4.6-6.2); WHITE BLOOD CELL COUNT,WBC 6.2 10^3/uL (5.0-10.0)
[2025-09-15 06:53] LABS: BLOOD UREA NITROGEN,BUN 22.0 mg/dL (7-18); CARBON DIOXIDE,CO2 29.0 mmol/L (21-32); CHLORIDE,CL 105.0 mmol/L (98-107); CREATININE 0.55 mg/dL (0.70-1.30); EST CRCL DRUG DOSING (CG) 125.41 mL/min; GLUCOSE RANDOM 100.0 mg/dL (70-99); PHOSPHORUS 3.2 mg/dL (2.6-4.7); POTASSIUM,K 3.6 mmol/L (3.5-5.1); SODIUM,NA 139.0 mmol/L (136-145)
[2025-09-15 07:02] LABS: ESTIMATED GFR 103.0 mL/min (>=60)
[2025-09-15] MEDS: Iopamidol 755 Mg/ML 100 ML Bottle IVPUSH ONE (09:05)
[2025-09-15] MEDS: Magnesium Sulfate 2 GM/50 mL 2 GM in Premix Bag 1 BAG IV ONE (10:28)
[2025-09-15] MEDS: Tiotropium Bromide 4 GM Inhalation Spray (2.5mcg/1 dose; 10 doses) INH SCH (12:35)
[2025-09-15] MEDS: Formoterol/Mometasone 200-5 MCG 8.8 GM Inhaler INH SCH (12:36)
[2025-09-15] MEDS: Saccharomyces Boulardii (Probiotic) 250 MG Cap PO SCH (14:09)
[2025-09-15] MEDS: Magnesium Sulfate 2 GM/50 mL 2 GM in Premix Bag 1 BAG IV STA (20:10)
[2025-09-16 06:18] LABS: BASOPHILS PERCENT AUTO 0.7 % (0.0-1.0); EOSINOPHILS PERCENT AUTO 5.5 % (1.0-3.0); LYMPHOCYTES PERCENT AUTO 10.1 % (20.5-50.1); MONOCYTES PERCENT AUTO 8.4 % (2-8); NEUTROPHILS PERCENT AUTO 75.3 % (42.2-75.2); PLATELET COUNT,PLT 227 10^3/uL (150-450); RED BLOOD CELL COUNT 3.49 10^6/uL (4.6-6.2); WHITE BLOOD CELL COUNT,WBC 10.8 10^3/uL (5.0-10.0)
[2025-09-16 06:21] LABS: BLOOD UREA NITROGEN,BUN 20.0 mg/dL (7-18); CARBON DIOXIDE,CO2 27.0 mmol/L (21-32); CHLORIDE,CL 104.0 mmol/L (98-107); CREATININE 0.56 mg/dL (0.70-1.30); EST CRCL DRUG DOSING (CG) 123.17 mL/min; GLUCOSE RANDOM 129.0 mg/dL (70-99); POTASSIUM,K 4.0 mmol/L (3.5-5.1); SODIUM,NA 136.0 mmol/L (136-145)
[2025-09-16 06:32] LABS: ESTIMATED GFR 102.0 mL/min (>=60)
[2025-09-16] MEDS: Amoxicillin/Clavulanate K 875-125 MG Tab PO SCH (09:12)
[2025-09-17 06:16] LABS: PLATELET COUNT,PLT 189 10^3/uL (150-450); RED BLOOD CELL COUNT 3.34 10^6/uL (4.6-6.2); WHITE BLOOD CELL COUNT,WBC 9.2 10^3/uL (5.0-10.0)
[2025-09-17 06:23] LABS: BASOPHILS PERCENT AUTO 0.8 % (0.0-1.0); EOSINOPHILS PERCENT AUTO 8.7 % (1.0-3.0); LYMPHOCYTES PERCENT AUTO 8.6 % (20.5-50.1); MONOCYTES PERCENT AUTO 9.9 % (2-8); NEUTROPHILS PERCENT AUTO 72.0 % (42.2-75.2)
[2025-09-17 06:33] LABS: BLOOD UREA NITROGEN,BUN 16.0 mg/dL (7-18); CARBON DIOXIDE,CO2 28.0 mmol/L (21-32); CREATININE 0.33 mg/dL (0.70-1.30); EST CRCL DRUG DOSING (CG) 209.02 mL/min; GLUCOSE RANDOM 109.0 mg/dL (70-99)
[2025-09-17 06:44] LABS: CHLORIDE,CL 104.0 mmol/L (98-107); POTASSIUM,K 4.1 mmol/L (3.5-5.1); SODIUM,NA 137.0 mmol/L (136-145)
[2025-09-17 06:51] LABS: ESTIMATED GFR 120.0 mL/min (>=60)
[2025-09-17 06:52] LABS: BAND PERCENT MAN 5 %; EOSINOPHILS PERCENT MAN 9 % (1-3); LYMPHOCYTES PERCENT MAN 8 % (20-50); MONOCYTES PERCENT MAN 4 % (2-8); SEG NEUTROPHILS PERCENT MAN 73 % (42-75)
[2025-09-17] MEDS: Magnesium Sulfate 2 GM/50 mL 2 GM in Premix Bag 1 BAG IV ONE (10:58)
[2025-09-17] MEDS: Furosemide 20 MG/2 ML VIAL IVPUSH ONE (12:58)
[2025-09-17] MEDS: Levofloxacin/Dextrose 5%-Water 750 MG in Premix Bag 1 BAG IV SCH (13:00)
[2025-09-17 15:19] VITALS: BP 99/56; PULSE 82
[2025-09-18 17:43] LABS: AMPHETAMINES Negative; BARBITURATES Negative; BENZODIAZEPINES Negative; BUPRENORPHINE Negative; CANNABINOIDS Presumptivepos; COCAINE METABOLITES Negative; METHADONE Negative; METHAMPHETAMINE Negative; OPIATES Negative; OXYCODONE Negative; PHENCYCLIDINE Negative
[2025-09-23 08:47] LABS: 11-NOR-9-CARBOXY-THC,S/P,QNT 14 ng/mL
== END 2025-09-17 15:19 | disposition swing bed (61) | DRG 872 ==
LOC: DL.ED 14:49 → DL.MS 17:22
PROVIDERS: ADMIT Internal Medicine; ATTEND Internal Medicine
PROC: 3E03329 Introduction of Other Anti-infective into Peripheral Vein, Percutaneous Approach (ICD-10-PCS; principal; 2025-09-14)
PROC: 30233N1 Transfusion of Nonautologous Red Blood Cells into Peripheral Vein, Percutaneous Approach (ICD-10-PCS; 2025-09-15)
DX: R11.2 Nausea with vomiting, unspecified (principal); A41.81 Sepsis due to Enterococcus; I50.32 Chronic diastolic (congestive) heart failure; E44.0 Moderate protein-calorie malnutrition; J96.11 Chronic respiratory failure with hypoxia; I10 Essential (primary) hypertension; N39.0 Urinary tract infection, site not specified; E87.20 Acidosis, unspecified; C83.32 Diffuse large B-cell lymphoma, intrathoracic lymph nodes; A41.59 Other Gram-negative sepsis; Z66 Do not resuscitate; Z51.5 Encounter for palliative care; H91.90 Unspecified hearing loss, unspecified ear; J44.9 Chronic obstructive pulmonary disease, unspecified; G47.33 Obstructive sleep apnea (adult) (pediatric); I25.10 Atherosclerotic heart disease of native coronary artery without angina pectoris; I11.0 Hypertensive heart disease with heart failure; R59.0 Localized enlarged lymph nodes; E78.00 Pure hypercholesterolemia, unspecified; K21.9 Gastro-esophageal reflux disease without esophagitis; M19.90 Unspecified osteoarthritis, unspecified site; G89.29 Other chronic pain; F41.9 Anxiety disorder, unspecified; E83.42 Hypomagnesemia; E83.52 Hypercalcemia; E86.0 Dehydration; R13.10 Dysphagia, unspecified; Z96.651 Presence of right artificial knee joint; H54.7 Unspecified visual loss; M54.9 Dorsalgia, unspecified; N40.0 Benign prostatic hyperplasia without lower urinary tract symptoms; M10.9 Gout, unspecified; I51.3 Intracardiac thrombosis, not elsewhere classified; Z68.25 Body mass index [BMI] 25.0-25.9, adult; Z92.21 Personal history of antineoplastic chemotherapy; Z79.899 Other long term (current) drug therapy; Z79.891 Long term (current) use of opiate analgesic; Z95.1 Presence of aortocoronary bypass graft; Z95.810 Presence of automatic (implantable) cardiac defibrillator; Z79.1 Long term (current) use of non-steroidal anti-inflammatories (NSAID); Z79.01 Long term (current) use of anticoagulants; Z79.51 Long term (current) use of inhaled steroids; Z86.0100 Personal history of colon polyps, unspecified; Z87.01 Personal history of pneumonia (recurrent); Z98.49 Cataract extraction status, unspecified eye; Z90.89 Acquired absence of other organs; Z95.5 Presence of coronary angioplasty implant and graft; Z90.49 Acquired absence of other specified parts of digestive tract; Z98.890 Other specified postprocedural states; Z99.81 Dependence on supplemental oxygen
CPT/HCPCS: 36415; 71045; 74177; 80053; 81001; 82272; 83540; 83550; 83605; 83735; 83880; 84484; 85025; 85610; 85730; 86140; 86850; 86900; 86901; 86920; 86922; 87040 ×2; 87086; 87088 ×3; 87186 ×3; 87428; 93005; 96361; 96365; 99285; J3475; J7040; Q9967; 36430; 71275; 80048; 80076; 80307; 82607; 82746; 84100; 84145; 84439; 84443; 87045; 87046; 87493; 87899; 93010; 94640; 94664; 97161-GP; 97165-GO; 97530-GO; 97530-GP; 99223; 99233; 99239; A9270-GY; J1938; J1956; J2405; J2543; J7030; J7120; P9016